=== PATIENT | male | born 1950 | race Caucasian/White ===

== ENCOUNTER 2017-11-24 23:29 | Observation (INO) | payer MEDICARE ==
[2017-11-24] MEDS ORDERED: Aspirin 81 MG Tab.Chew PO ONE (23:38)
--- NOTE | 2017-11-24 23:39 | EDM.PDOC ---
ED HPI GENERAL MEDICAL PROBLEM - General Chief Complaint: Chest Pain Stated Complaint: PT HAS HEART PROBLEMS Time Seen by Provider: 11/24/17 23:38 Source of Information: Reports: Patient - History of Present Illness INITIAL COMMENTS - FREE TEXT/NARRATIVE: HISTORY AND PHYSICAL: History of present illness: [Patient presents with chest discomfort throughout the day not associated with exertion or shortness of breath he rates one out of 10, pain resolved shortly after arrival without any real therapeutic treatment patient did receive aspirin enteric 2 baby aspirin at home was provided another 2 on arrival here giving him a total of 4 baby aspirin/324 mg. Patient has diabetes hypertension dyslipidemia recent incomplete stress testing scheduled for a nuclear study with Dr. Garcia, No fever nausea vomiting chills sweats no current chest pain shortness breath headache dizziness or palpitation no bowel bowel or urine symptoms no diaphoresis ] Review of systems: As per history of present illness and below otherwise all systems reviewed and negative. Past medical history: As per history of present illness and as reviewed below otherwise noncontributory. Surgical history: As per history of present illness and as reviewed below otherwise noncontributory. Social history: No reported history of drug or alcohol abuse. Family history: As per history of present illness and as reviewed below otherwise noncontributory. Physical exam: HEENT: Atraumatic, normocephalic, pupils reactive, negative for conjunctival pallor or scleral icterus, mucous membranes moist, throat clear, neck supple, nontender, trachea midline. Lungs: Clear to auscultation, breath sounds equal bilaterally, chest nontender. Heart: S1S2, regular, negative for clicks, rubs, or JVD. Abdomen: Soft, nondistended, nontender. Negative for masses or hepatosplenomegaly. Negative for costovertebral tenderness. Pelvis: Stable nontender. Genitourinary: Deferred. Rectal: Deferred. Extremities: Atraumatic, negative for cords or calf pain. Neurovascular unremarkable. Neuro: Awake, alert, oriented. Cranial nerves II through XII unremarkable. Cerebellum unremarkable. Motor and sensory unremarkable throughout. Exam nonfocal. Diagnostics: [CBC CMP UA troponin lipase EKG ] chest 1 view Therapeutics: [ normal saline 1 25 mL per hour aspirin 324 mg chewable ] Impression: [ atypical chest pain Slightly elevated troponin ] Definitive disposition and diagnosis as appropriate pending reevaluation and review of above. Mid-chest Pain Score (Numeric/FACES): 1 - Related Data Allergies Allergy/AdvReac Type Severity Reaction Status Date / Time Penicillins Allergy Diarrhea Verified 11/24/17 23:43 bee sting Allergy Shortness Uncoded 11/24/17 23:43 of Breath Home Meds: Home Meds Aspirin [Halfprin] 81 mg PO DAILY 09/20/15 [History] Furosemide 40 mg PO QAM 09/20/15 [History] Insulin Aspart [NovoLOG] 25 unit SQ TIDAC 09/20/15 [History] Insulin Glarg,Human.Rec.Analog [Lantus] 40 unit SQ BEDTIME 09/20/15 [History] Lisinopril 20 mg PO DAILY 09/20/15 [History] Nebivolol HCl [Bystolic] 10 mg PO DAILY 09/20/15 [History] Nitroglycerin [Nitrostat] 1 tab PO ASDIRECTED PRN 09/20/15 [History] Triamterene/Hydrochlorothiazid [Triamterene-HCTZ 75-50 MG] 1 tab PO DAILY [History] amLODIPine Besylate [Amlodipine Besylate] 5 mg PO DAILY 09/20/15 [History] atorvaSTATin Calcium [Atorvastatin Calcium] 40 mg PO BEDTIME 09/20/15 [History] metFORMIN HCl [Metformin HCl] 1,000 mg PO PCDINNER 09/20/15 [History] Potassium Chloride [Klor-Con M20] 20 meq PO DAILY 05/08/16 [History] Past Medical History Cardiovascular History: Reports: CAD, High Cholesterol, Hypertension Gastrointestinal History: Reports: Other (See Below) Other Gastrointestinal History: Current umbilical hernia Musculoskeletal History: Reports: Fracture Other Musculoskeletal History: Right lower leg as young child, Fingers in Oil Patch (severaL). Bilateral Eye Orbital repairs Neurological History: Reports: CVA Other Neuro History: hx stroke '98 "only residual Right Side Tires easily" Endocrine/Metabolic History: Reports: Diabetes, Type I, Obesity/BMI 30+ Hematologic History: Reports: Other (See Below) Other Hematologic History: I bleed easily Dermatologic History: Reports: Other (See Below) Other Dermatologic History: Chronic area to Right Lower Leg - Infectious Disease History Infectious Disease History: Reports: Influenza, Measles, Mumps - Past Surgical History HEENT Surgical History: Reports: Other (See Below) GI Surgical History: Reports: Hernia Repair/Other Social & Family History - Family History Family Medical History: Noncontributory - Tobacco Use Smoking Status *Q: Former Smoker Used Tobacco, but Quit: No Second Hand Smoke Exposure: No - Caffeine Use Caffeine Use: Reports: None - Alcohol Use Days Per Week of Alcohol Use: 4 Number of Drinks Per Day: 2 Total Drinks Per Week: 8 - Recreational Drug Use Recreational Drug Use: No Drug Use in Last 12 Months: No ED ROS GENERAL - Review of Systems Review Of Systems: ROS reveals no pertinent complaints other than HPI. ED EXAM, GENERAL - Physical Exam Exam: See Below Course - Vital Signs Last Recorded V/S: Last Vital Signs Temp 97.6 F 11/24/17 23:29 Pulse 59 L 11/25/17 00:49 Resp 16 11/25/17 00:49 BP 130/68 11/25/17 00:49 Pulse Ox 94 L 11/25/17 00:49 - Orders/Labs/Meds Orders: Active Orders 24 hr Category Date Time Status EKG Documentation Completion [RC] AM Care 11/24/17 23:38 Active Chest 1V Frontal [CR] Stat Exams 11/24/17 23:38 Taken B-TYPE NATRIURETIC PEPTIDE,BNP [CHEM] Stat Lab 11/25/17 00:50 Ordered Nitroglycerin [Nitrostat] Med 11/25/17 00:46 Active 0.4 mg SL Q5M PRN Sodium Chloride 0.9% [Normal Saline] 1,000 ml Med 11/24/17 23:45 Active IV STAT Medication Orders Sodium Chloride (Normal Saline) 1,000 mls @ 125 mls/hr IV STAT KRISHNA Last Admin: 11/24/17 23:52 Dose: 125 mls/hr Nitroglycerin (Nitrostat) 0.4 mg SL Q5M PRN PRN Reason: Chest Pain Labs: Laboratory Tests 11/24/17 11/24/17 Range/Units 23:35 23:35 WBC 10.53 (4.0-11.0) K/uL RBC 4.61 (4.50-5.90) M/uL Hgb 14.2 (13.0-17.0) g/dL Hct 43.6 (38.0-50.0) % MCV 94.6 (80.0-98.0) fL MCH 30.8 (27.0-32.0) pg MCHC 32.6 (31.0-37.0) g/dL RDW Std Deviation 51.0 (28.0-62.0) fl RDW Coeff of Danyelle 15 (11.0-15.0) % Plt Count 191 (150-400) K/uL MPV 11.40 (7.40-12.00) fL Neut % (Auto) 54.5 (48.0-80.0) % Lymph % (Auto) 23.6 (16.0-40.0) % [place] % (Auto) 10.1 (0.0-15.0) % Eos % (Auto) 11.2 H (0.0-7.0) % Baso % (Auto) 0.6 (0.0-1.5) % Neut # (Auto) 5.8 H (1.4-5.7) K/uL Lymph # (Auto) 2.5 H (0.6-2.4) K/uL [place] # (Auto) 1.1 H (0.0-0.8) K/uL Eos # (Auto) 1.2 H (0.0-0.7) K/uL Baso # (Auto) 0.1 (0.0-0.1) K/uL Nucleated RBC % 0.0 /100WBC Nucleated RBCs # 0 K/uL Sodium 137 (136-148) mmol/L Potassium 4.0 (3.5-5.1) mmol/L Chloride 100 (98-107) mmol/L Carbon Dioxide 27.9 (21.0-32.0) mmol/L BUN 36 H (7.0-18.0) mg/dL Creatinine 0.9 (0.8-1.3) mg/dL Est Cr Clr Drug Dosing TNP Estimated GFR (MDRD) > 60.0 ml/min Glucose 155 H (74-106) mg/dL Calcium 9.0 (8.5-10.1) mg/dL Total Bilirubin 0.4 (0.2-1.0) mg/dL AST 13 L (15-37) IU/L ALT 26 (14-63) IU/L Alkaline Phosphatase 93 (46-116) U/L Creatine Kinase 89 (26-308) U/L CK-MB (CK-2) 2.0 (0-3.6) ng/mL Troponin I 0.064 H* (0.000-0.056) ng/mL Total Protein 7.6 (6.4-8.2) g/dL Albumin 3.8 (3.4-5.0) g/dL Globulin 3.8 H (2.0-3.5) g/dL Albumin/Globulin Ratio 1.0 L (1.3-2.8) Lipase 107 (73-393) U/L Meds: Medications Generic Name Dose Route Start Last Admin Trade Name Freq PRN Reason Stop Dose Admin Sodium Chloride 1,000 mls @ 125 mls/hr 11/24/17 23:45 11/24/17 23:52 Normal Saline IV 125 mls/hr STAT KRISHNA Administration Nitroglycerin 0.4 mg 11/25/17 00:46 Nitrostat SL Q5M PRN Chest Pain Discontinued Medications Generic Name Dose Route Start Last Admin Trade Name Freq PRN Reason Stop Dose Admin Aspirin 324 mg 11/24/17 23:38 11/24/17 23:52 Aspirin PO 11/24/17 23:39 162 mg ONETIME ONE Administration Enoxaparin Sodium 150 mg 11/25/17 00:50 Lovenox SUBCUT 11/25/17 00:51 ONETIME ONE Departure - Departure Time of Disposition: 00:58 Disposition: Refer to Observation Condition: Fair Clinical Impression: Atypical chest pain - Discharge Information Forms: ED Department Discharge - My Orders Last 24 Hours: My Active Orders 11/24/17 23:38 EKG Documentation Completion [RC] AM Chest 1V Frontal [CR] Stat 11/24/17 23:45 Sodium Chloride 0.9% [Normal Saline] 1,000 ml IV STAT 11/25/17 00:46 Nitroglycerin [Nitrostat] 0.4 mg SL Q5M PRN 11/25/17 00:50 B-TYPE NATRIURETIC PEPTIDE,BNP [CHEM] Stat - Assessment/Plan Last 24 Hours: My Active Orders 11/24/17 23:38 EKG Documentation Completion [RC] AM Chest 1V Frontal [CR] Stat 11/24/17 23:45 Sodium Chloride 0.9% [Normal Saline] 1,000 ml IV STAT 11/25/17 00:46 Nitroglycerin [Nitrostat] 0.4 mg SL Q5M PRN 11/25/17 00:50 B-TYPE NATRIURETIC PEPTIDE,BNP [CHEM] Stat
[2017-11-24] MEDS ORDERED: Sodium Chloride 0.9% 1,000 ML IV SCH (23:45)
[2017-11-25 00:27] LABS: CHLORIDE,CL 100 mmol/L (98-107); SODIUM,NA 137 mmol/L (136-148)
[2017-11-25] MEDS ORDERED: Nitroglycerin 0.4 MG Tab.SL SL PRN ×2 (00:46→02:31)
[2017-11-25] MEDS ORDERED: Enoxaparin 150 MG/1 ML Syringe SUBCUT ONE (00:50)
[2017-11-25] MEDS ORDERED: Acetaminophen 325 MG Tab PO PRN (02:29)
[2017-11-25] MEDS ORDERED: Insulin Glargine,Human Rec. Analog 100 Units/ML 3 ML Pen SUBCUT ONE (02:48)
[2017-11-25] MEDS: Insulin Aspart 100 Units/ML 3 ML Pen SUBCUT SCH ×3 (06:43→17:01)
[2017-11-25] MEDS ORDERED: Hydrochlorothiazide/Triamterene 50-75 MG Tab PO SCH (09:00)
[2017-11-25] MEDS ORDERED: amLODIPine 5 MG Tab PO SCH (09:00)
[2017-11-25] MEDS ORDERED: Aspirin 81 MG Tab.EC PO SCH (09:00)
[2017-11-25] MEDS ORDERED: Potassium Chloride 20 MEQ Tab.ER PO SCH (09:00)
[2017-11-25] MEDS ORDERED: NEBIVOLOL 10 MG PO SCH (09:00)
[2017-11-25] MEDS ORDERED: Lisinopril 10 MG Tab PO SCH (09:00)
[2017-11-25] MEDS ORDERED: Furosemide 40 MG Tab PO SCH (09:00)
--- NOTE | 2017-11-25 12:32 | PCM.HP ---
H&P History of Present Illness - General Date of Service: 11/25/17 Admit Problem/Dx: Admission Diagnosis/Problem Admission Diagnosis/Problem Atypical chest pain Source of Information: Patient History Limitations: Reports: No Limitations - History of Present Illness Initial Comments - Free Text/Narative: Admission diagnosis: #1. Chest pain #2. Elevated troponin Discharge diagnosis: #1. Chest pain, resolved #2. Elevated troponin, improved 67-year-old male with a history of diabetes, hypertension, dyslipidemia and stroke, presented to the ER with chief complaint of chest pain that had persisted over the previous day. Upon presenting to the ER, the chest pain had almost resolved. The patient did take a baby aspirin prior to presenting to the ER. He had no chest pain with exertion and he did not have any shortness of breath, radiation of the pain or diaphoresis. The pain was dull in nature and located in the mid sternum. Patient did undergo a stress test at the beginning of November 2017 which showed decreased uptake along the inferior wall of the heart suggesting possible underlying ischemia. His ejection fraction was 47%. Patient does have a follow-up appointment with Dr. Garcia, chiropractor sole practitioner, here in [place]. While in the ER the patient was given IV fluids and another aspirin. Since being admitted, the patient has not had any chest pain, shortness of breath, nausea, vomiting, peripheral edema, orthopnea fever or any other symptoms. ER workup: CBC was unremarkable. BUN mildly elevated at 36. The highest it has been was 49 in 2016. Patient denies any history of kidney disease. Initial troponin was 0.064. Second troponin is within normal limits. BMP is 472. Previous BNP in 2016 was 279. Chest x-ray showed cardiomegaly. All other testing was unremarkable. During admission, repeat troponin 2 was negative. Patient was seen by our chiropractor sole practitioner, Dr. Linda. He looked at the patient's EKG and spoke with the patient' s chiropractor sole practitioner, Dr. Garcia, in [place], [place]. Dr. Garcia did not believe that the patient needed to be transferred for an emergent cardiac cath but that he can be discharged home with a follow-up appointment scheduled on December [address] Garcia. Patient did not need any treatment for chest pain during admission. He was tolerating oral intake and voiding appropriately. He was ambulating without assistance during admission. At the time of discharge, the patient was not experiencing any chest pain and seemed to be doing well. Mid-chest Pain Score (Numeric/FACES): 1 - Related Data Allergies/Adverse Reactions: Allergies Allergy/AdvReac Type Severity Reaction Status Date / Time Penicillins Allergy Diarrhea Verified 11/24/17 23:43 bee sting Allergy Shortness Uncoded 11/24/17 23:43 of Breath Home Medications: Home Meds Aspirin [Halfprin] 81 mg PO DAILY 09/20/15 [History] Furosemide 40 mg PO QAM 09/20/15 [History] Insulin Aspart [NovoLOG] 25 unit SQ TIDAC 09/20/15 [History] Insulin Glarg,Human.Rec.Analog [Lantus] 40 unit SQ BEDTIME 09/20/15 [History] Lisinopril 20 mg PO DAILY 09/20/15 [History] Nebivolol HCl [Bystolic] 10 mg PO DAILY 09/20/15 [History] Nitroglycerin [Nitrostat] 1 tab PO ASDIRECTED PRN 09/20/15 [History] Triamterene/Hydrochlorothiazid [Triamterene-HCTZ 75-50 MG] 1 tab PO DAILY [History] metFORMIN HCl [Metformin HCl] 1,000 mg PO PCDINNER 09/20/15 [History] Potassium Chloride [Klor-Con M20] 20 meq PO DAILY 05/08/16 [History] Clopidogrel Bisulfate [Plavix] 75 mg PO DAILY #30 tablet 11/25/17 [Rx] Isosorbide Mononitrate [Imdur] 20 mg PO DAILY #30 tab.er 11/25/17 [Rx] atorvaSTATin Calcium [Atorvastatin Calcium] 80 mg PO BEDTIME #30 tablet [Rx] Past Medical History HEENT History: Reports: Cataract Cardiovascular History: Reports: CAD, High Cholesterol, Hypertension Gastrointestinal History: Reports: Other (See Below) Other Gastrointestinal History: Current umbilical hernia Musculoskeletal History: Reports: Fracture Other Musculoskeletal History: Right lower leg as young child, 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) Neurological History: Reports: CVA Other Neuro History: hx stroke ,1997 "Right Side Tires easily" Endocrine/Metabolic History: Reports: Diabetes, Type I, Obesity/BMI 30+ Hematologic History: Reports: Other (See Below) Other Hematologic History: I bleed easily Dermatologic History: Reports: Other (See Below) Other Dermatologic History: Chronic area to Right Lower Leg - Infectious Disease History Infectious Disease History: Reports: Influenza, Measles, Mumps - Past Surgical History HEENT Surgical History: Reports: Other (See Below) Other HEENT Surgeries/Procedures: Bilateral orbital eye surgery Cardiovascular Surgical History: Reports: None GI Surgical History: Reports: Hernia Repair/Other Endocrine Surgical History: Reports: None Neurological Surgical History: Reports: None Social & Family History - Family History Family Medical History: Noncontributory - Tobacco Use Smoking Status *Q: Never Smoker Used Tobacco, but Quit: No Second Hand Smoke Exposure: No - Caffeine Use Caffeine Use: Reports: Coffee Other Caffeine Use: occasionally - Alcohol Use Days Per Week of Alcohol Use: 4 Number of Drinks Per Day: 2 Total Drinks Per Week: 8 - Recreational Drug Use Recreational Drug Use: No Drug Use in Last 12 Months: No H&P Review of Systems - Review of Systems: Review Of Systems: See Below General: Reports: No Symptoms HEENT: Reports: No Symptoms Pulmonary: Reports: No Symptoms Cardiovascular: Reports: Chest Pain Gastrointestinal: Reports: No Symptoms Genitourinary: Reports: No Symptoms Musculoskeletal: Reports: No Symptoms Skin: Reports: No Symptoms Psychiatric: Reports: No Symptoms Neurological: Reports: No Symptoms Hematologic/Lymphatic: Reports: No Symptoms Immunologic: Reports: No Symptoms Exam - Exam Exam: See Below - Vital Signs Vital Signs: Last Vital Signs Temp 98.0 F 11/25/17 12:00 Pulse 60 11/25/17 12:00 Resp 20 11/25/17 12:00 BP 103/53 L 11/25/17 12:00 Pulse Ox 96 11/25/17 12:00 Weight: 228 lb 11.2 oz - Exam General: Alert, Oriented, Cooperative HEENT: Hearing Intact Neck: Supple, Trachea Midline, 2 Lungs: Clear to Auscultation, Normal Respiratory Effort Cardiovascular: Regular Rate, Regular Rhythm GI/Abdominal Exam: Normal Bowel Sounds, Soft, Non-Tender, No Organomegaly, No Distention, No Abnormal Bruit, No Mass, Pelvis Stable Extremities: Normal Inspection, Normal Range of Motion, Non-Tender, No Pedal Edema, Normal Capillary Refill Peripheral Pulses: 2+: Radial (L), Radial (R), Posterior Tibial (L), Posterior Tibial (R) Skin: Warm, Dry, Intact Neuro Extensive - Mental Status: Alert, Oriented x3, Normal Mood/Affect, Normal Cognition Neuro Extensive - Motor, Sensory, Reflexes: Normal Gait Psychiatric: Alert, Normal Affect, Normal Mood - Patient Data Lab Results Last 24 hrs: Laboratory Results - last 24 hr 11/24/17 11/24/17 11/24/17 Range/Units 23:35 23:35 23:35 WBC 10.53 (4.0-11.0) K/uL RBC 4.61 (4.50-5.90) M/uL Hgb 14.2 (13.0-17.0) g/dL Hct 43.6 (38.0-50.0) % MCV 94.6 (80.0-98.0) fL MCH 30.8 (27.0-32.0) pg MCHC 32.6 (31.0-37.0) g/dL RDW Std Deviation 51.0 (28.0-62.0) fl RDW Coeff of Danyelle 15 (11.0-15.0) % Plt Count 191 (150-400) K/uL MPV 11.40 (7.40-12.00) fL Neut % (Auto) 54.5 (48.0-80.0) % Lymph % (Auto) 23.6 (16.0-40.0) % Clarke % (Auto) 10.1 (0.0-15.0) % Eos % (Auto) 11.2 H (0.0-7.0) % Baso % (Auto) 0.6 (0.0-1.5) % Neut # (Auto) 5.8 H (1.4-5.7) K/uL Lymph # (Auto) 2.5 H (0.6-2.4) K/uL Clarke # (Auto) 1.1 H (0.0-0.8) K/uL Eos # (Auto) 1.2 H (0.0-0.7) K/uL Baso # (Auto) 0.1 (0.0-0.1) K/uL Nucleated RBC % 0.0 /100WBC Nucleated RBCs # 0 K/uL Sodium 137 (136-148) mmol/L Potassium 4.0 (3.5-5.1) mmol/L Chloride 100 (98-107) mmol/L Carbon Dioxide 27.9 (21.0-32.0) mmol/L BUN 36 H (7.0-18.0) mg/dL Creatinine 0.9 (0.8-1.3) mg/dL Est Cr Clr Drug Dosing TNP Estimated GFR (MDRD) > 60.0 ml/min Glucose 155 H (74-106) mg/dL Calcium 9.0 (8.5-10.1) mg/dL Total Bilirubin 0.4 (0.2-1.0) mg/dL AST 13 L (15-37) IU/L ALT 26 (14-63) IU/L Alkaline Phosphatase 93 (46-116) U/L Creatine Kinase 89 (26-308) U/L CK-MB (CK-2) 2.0 (0-3.6) ng/mL Troponin I 0.064 H* (0.000-0.056) ng/mL B-Natriuretic Peptide 472 H (<100) PG/ML Total Protein 7.6 (6.4-8.2) g/dL Albumin 3.8 (3.4-5.0) g/dL Globulin 3.8 H (2.0-3.5) g/dL Albumin/Globulin Ratio 1.0 L (1.3-2.8) Lipase 107 (73-393) U/L 11/25/17 Range/Units 05:41 WBC (4.0-11.0) K/uL RBC (4.50-5.90) M/uL Hgb (13.0-17.0) g/dL Hct (38.0-50.0) % MCV (80.0-98.0) fL MCH (27.0-32.0) pg MCHC (31.0-37.0) g/dL RDW Std Deviation (28.0-62.0) fl RDW Coeff of Danyelle (11.0-15.0) % Plt Count (150-400) K/uL MPV (7.40-12.00) fL Neut % (Auto) (48.0-80.0) % Lymph % (Auto) (16.0-40.0) % Clarke % (Auto) (0.0-15.0) % Eos % (Auto) (0.0-7.0) % Baso % (Auto) (0.0-1.5) % Neut # (Auto) (1.4-5.7) K/uL Lymph # (Auto) (0.6-2.4) K/uL Clarke # (Auto) (0.0-0.8) K/uL Eos # (Auto) (0.0-0.7) K/uL Baso # (Auto) (0.0-0.1) K/uL Nucleated RBC % /100WBC Nucleated RBCs # K/uL Sodium (136-148) mmol/L Potassium (3.5-5.1) mmol/L Chloride (98-107) mmol/L Carbon Dioxide (21.0-32.0) mmol/L BUN (7.0-18.0) mg/dL Creatinine (0.8-1.3) mg/dL Est Cr Clr Drug Dosing Estimated GFR (MDRD) ml/min Glucose (74-106) mg/dL Calcium (8.5-10.1) mg/dL Total Bilirubin (0.2-1.0) mg/dL AST (15-37) IU/L ALT (14-63) IU/L Alkaline Phosphatase (46-116) U/L Creatine Kinase (26-308) U/L CK-MB (CK-2) (0-3.6) ng/mL Troponin I < 0.050 (0.000-0.056) ng/mL B-Natriuretic Peptide (<100) PG/ML Total Protein (6.4-8.2) g/dL Albumin (3.4-5.0) g/dL Globulin (2.0-3.5) g/dL Albumin/Globulin Ratio (1.3-2.8) Lipase (73-393) U/L Result Diagrams: 11/24/17 23:35 11/24/17 23:35 - Problem List (1) Atypical chest pain SNOMED Code(s): 018507919 ICD Code: R07.89 - OTHER CHEST PAIN Status: Acute Current Visit: Yes Problem List Initiated/Reviewed/Updated: Yes Orders Last 24hrs: Active Orders 24 hr Category Date Time Status Admission Status [Patient Status] [ADT] Stat ADT 11/25/17 00:59 Active Blood Glucose Check, Bedside [RC] TIDAC Care 11/25/17 06:30 Active Communication Order [RC] ROUTINE Care 11/25/17 02:26 Active Notify Provider Consults [RC] ASDIRECTED Care 11/25/17 12:20 Active Telemetry Monitoring [Cardiac Monitoring] [RC] . Care 11/25/17 01:11 Active DIRECTED Consult to Physician [CONS] Routine Cons 11/25/17 12:20 Active ADA Diabetic [[place] [employer] Diet] [DIET Diet 11/25/17 Breakfast Active ] Chest 1V Frontal [CR] Stat Exams 11/24/17 23:38 Taken TROPONIN I [CHEM] Q6H Lab 11/25/17 11:38 Received Acetaminophen [Tylenol] Med 11/25/17 02:29 Active 650 mg PO Q4H PRN Aspirin [Halfprin] Med 11/25/17 09:00 Active 81 mg PO DAILY Furosemide [Lasix] Med 11/25/17 09:00 Active 40 mg PO QAM HCTZ/Triamterene [Maxzide 50-75 MG] Med 11/25/17 09:00 Active 1 each PO DAILY Insulin Aspart [NovoLOG] Med 11/25/17 07:30 Active See Protocol SUBCUT TIDAC Insulin Glarg,Human.Rec.Analog [LantUS Solostar] Med 11/25/17 21:00 Active 0 units SUBCUT BEDTIME Lisinopril [Prinivil] Med 11/25/17 09:00 Active 20 mg PO DAILY Nebivolol Med 11/25/17 09:00 Active 10 mg PO DAILY Nitroglycerin [Nitrostat] Med 11/25/17 02:31 Active 0.4 mg SL ASDIRECTED PRN Nitroglycerin [Nitrostat] Med 11/25/17 00:46 Active 0.4 mg SL Q5M PRN Potassium Chloride [Klor-Con M20] Med 11/25/17 09:00 Active 20 meq PO DAILY Sodium Chloride 0.9% [Normal Saline] 1,000 ml Med 11/24/17 23:45 Active IV STAT amLODIPine [Norvasc] Med 11/25/17 09:00 Active 5 mg PO DAILY atorvaSTATin [Lipitor] Med 11/25/17 21:00 Active 40 mg PO BEDTIME metFORMIN [Glucophage] Med 11/25/17 18:00 Active 1,000 mg PO PCDINNER Medication Orders Acetaminophen (Tylenol) 650 mg PO Q4H PRN PRN Reason: Pain Amlodipine Besylate (Norvasc) 5 mg PO DAILY [facility] Last Admin: 11/25/17 09:27 Dose: Not Given Aspirin (Halfprin) 81 mg PO DAILY [facility] Last Admin: 11/25/17 08:02 Dose: 81 mg Atorvastatin Calcium (Lipitor) 40 mg PO BEDTIME [facility] Furosemide (Lasix) 40 mg PO QAM [facility] Last Admin: 11/25/17 08:02 Dose: 40 mg Sodium Chloride (Normal Saline) 1,000 mls @ 125 mls/hr IV STAT [facility] Last Admin: 11/24/17 23:52 Dose: 125 mls/hr Insulin Aspart (Novolog) 0 unit SUBCUT TIDAC [facility]; Protocol Last Admin: 11/25/17 12:08 Dose: Not Given Admin: 11/25/17 06:43 Dose: Not Given Insulin Glargine (Lantus Solostar) 0 units SUBCUT BEDTIME [facility] Lisinopril (Prinivil) 20 mg PO DAILY [facility] Last Admin: 11/25/17 09:27 Dose: Not Given Metformin HCl (Glucophage) 1,000 mg PO PCDINNER [facility] Nitroglycerin (Nitrostat) 0.4 mg SL Q5M PRN PRN Reason: Chest Pain Nitroglycerin (Nitrostat) 0.4 mg SL ASDIRECTED PRN PRN Reason: Chest Pain Non-Formulary Medication (Nebivolol) 10 mg PO DAILY [facility] Potassium Chloride (Klor-Con M20) 20 meq PO DAILY [facility] Last Admin: 11/25/17 08:02 Dose: 20 meq Triamterene/HCTZ (Maxzide 50-75 Mg) 1 each PO DAILY [facility] Last Admin: 11/25/17 08:02 Dose: 1 each Assessment/Plan Comment:: 67-year-old male being admitted with atypical chest pain. #1 atypical chest pain: Initial troponin was elevated at 0.064. Follow-up troponin 2 was negative. Patient has not had any chest pain since admission and has not needed any treatment for chest pain. Patient is scheduled see Dr. Garcia on December 03. -Dr. Linda has been consulted and will see the patient prior to discharge. -Patient did undergo stress testing at the being of November 2017. This showed decreased uptake along the inferior wall of the heart suggesting possible underlying ischemia. Ejection fraction was 47%. All home medications have been resumed. Disposition: Today after being seen by Dr. Linda. Admission diagnosis: #1. Chest pain #2. Elevated troponin Discharge diagnosis: #1. Chest pain, resolved #2. Elevated troponin, improved 67-year-old male with a history of diabetes, hypertension, dyslipidemia and stroke, presented to the ER with chief complaint of chest pain that had persisted over the previous day. Upon presenting to the ER, the chest pain had almost resolved. The patient did take a baby aspirin prior to presenting to the ER. He had no chest pain with exertion and he did not have any shortness of breath, radiation of the pain or diaphoresis. The pain was dull in nature and located in the mid sternum. Patient did undergo a stress test at the beginning of November 2017 which showed decreased uptake along the inferior wall of the heart suggesting possible underlying ischemia. His ejection fraction was 47%. Patient does have a follow-up appointment with Dr. Garcia, chiropractor sole practitioner, here in [place]. While in the ER the patient was given IV fluids and another aspirin. Since being admitted, the patient has not had any chest pain, shortness of breath, nausea, vomiting, peripheral edema, orthopnea fever or any other symptoms. ER workup: CBC was unremarkable. BUN mildly elevated at 36. The highest it has been was 49 in 2016. Patient denies any history of kidney disease. Initial troponin was 0.064. Second troponin is within normal limits. BMP is 472. Previous BNP in 2016 was 279. Chest x-ray showed cardiomegaly. All other testing was unremarkable. During admission, repeat troponin 2 was negative. Patient was seen by our chiropractor sole practitioner, Dr. Linda. He looked at the patient's EKG and spoke with the patient' s chiropractor sole practitioner, Dr. Garcia, in [place], [place]. Dr. Garcia did not believe that the patient needed to be transferred for an emergent cardiac cath but that he can be discharged home with a follow-up appointment scheduled on December [address] Garcia. Patient did not need any treatment for chest pain during admission. Dr. Linda did recommend that the patient be given a 600 mg loading dose of Plavix prior to discharge and then started on 75 mg daily of Plavix starting tomorrow. He was tolerating oral intake and voiding appropriately. He was ambulating without assistance during admission. At the time of discharge, the patient was not experiencing any chest pain and seemed to be doing well. Discharge plan: #1. Patient's Norvasc was discontinued secondary to hypotension. All other antihypertensive medications were continued. #2. Prescription given for Imdur 20 mg daily. This was recommended by Dr. Linda, chiropractor sole practitioner. #3. Prescription given for Plavix 75 mg daily. This was recommended by Dr. Linda, chiropractor sole practitioner. #4. Lipitor increased to 80 mg daily. #5. Patient will follow-up with Dr. Garcia on December 03, 2017. The of the patient is trying to get an earlier appointment. Patient was admitted and discharged within the same 24-hour period. This document will be used as the patient's H&P as well as his discharge summary.
--- NOTE | 2017-11-25 15:27 | CR ---
EXAM DATE: 11/25/17 PATIENT'S AGE: 67 Patient: LAURIE PHAM Facility: [place], [place] Site . Site : 1950 Study: XRay Chest [id number] 12:09:02 AM Ordering Physician: Doctor Hammond Final Report: INDICATION: Chest pain. TECHNIQUE: Chest radiograph 1 view COMPARISON: None FINDINGS: Cardiac silhouette is enlarged. No focal airspace consolidation, blunting of costophrenic sulci, or pneumothorax. Moderate degree bilateral shoulder degenerative changes. No displaced rib fracture. IMPRESSION: 1. Cardiomegaly. Dictated by Oj Cooley MD @ 11/25/2017 12:12:56 AM Dictated by: Oj Cooley MD @ 11/25/2017 00:13:01 (Electronic Signature) Report Signed by Proxy. [facility]ITALAlexei
[2017-11-25 16:11] VITALS: BP 105/62
[2017-11-25] MEDS ORDERED: Clopidogrel 75 MG Tab PO ONE (16:17)
[2017-11-25] MEDS ORDERED: metFORMIN 500 MG Tab PO SCH (18:00)
[2017-11-25] MEDS ORDERED: Insulin Glargine,Human Rec. Analog 100 Units/ML 3 ML Pen SUBCUT SCH (21:00)
[2017-11-25] MEDS ORDERED: atorvaSTATin 40 MG Tab PO SCH (21:00)
--- NOTE | 2017-11-26 00:47 | CONS ---
DATE OF CONSULTATION: 11/25/2017 DATE OF : 1950 PRIMARY CARE PHYSICIAN: None PCP REASON FOR CONSULTATION: Elevation of troponin. HISTORY OF PRESENT ILLNESS: This is a 67-year-old male with history of diabetes, hypertension, hyperlipidemia, and history of stroke in the past, who has presented to the hospital yesterday for feeling tired, weakness, and dull aching pain. I was just asked to see him like 1 hour ago today. He stated that he has had dull aching pain on the left-sided chest wall; no radiation; it is mild, like 2 from 10 pain scale; it is not related to any activities or breathing, and it comes and go all day long; never woke him up at night; lasting could be 1 to 2 hours. He denied related symptoms, such as shortness of breath, sweating, or nausea or vomiting. No leg swelling also. He had the stress Lexiscan done on November 21 due to the chest pain, at that time it seemed to be positive. However, he has been scheduled to see Dr. Garcia on December 03. However, because of the symptom of dull aching pain as well as tired, he was admitted in the hospital yesterday. Yesterday, he arrived into the hospital, the chest pain has gone away, and he has been feeling tired. When I talked to him today, he denied any chest pain, and he is comfortably lying down in bed. The current EKG on November 24, [address] depression in II and aVF, also V4 to V6, and also lead I and aVL. When compared to the old one, he has a preexisting ST abnormality in the past too in V3 to V6; however, lead III and aVL seemed to be normal ST-segment. PAST MEDICAL HISTORY: Including history of stroke, hypertension, hyperlipidemia, and diabetes. He used to be on the Plavix before, but he stopped it because he was feeling fine. SOCIAL HISTORY: He denies smoking. No drug use. He drinks occasionally. FAMILY HISTORY: Noncontributory. REVIEW OF SYSTEMS: As indicated in the HPI, otherwise has been negative. PHYSICAL EXAMINATION: VITAL SIGNS: The current blood pressure is ranging between 90/42 to 100/53, heart rate of 60 to 70, O2 saturation is 96% on room air, respiration rate 16 to 20, and temperature 36.7. HEENT: No pallor. No jaundice. No JVD. HEART: Normal S1 and S2. No murmur. LUNGS: Clear. ABDOMEN: Soft and nontender. Bowel sounds are present. No hepatosplenomegaly. LEGS: Trace edema bilaterally. INVESTIGATIONS: CBC showed WBC 10, hematocrit 43, and platelets 191. Sodium 137, potassium 4, chloride 100, bicarb 27, BUN 36, and creatinine 0.9. The first troponin is 0.064, the second and third one were negative. BNP was elevated at 472. Lexiscan was done on November 21, showing partially severe reversible perfusion defect in basal to distal inferior wall as well as mild reversible perfusion defect in the basal to distal anterior wall with stress ejection fraction of 28% and the resting ejection fraction of 47%, TID was not elevated. CURRENT MEDICATIONS: Including 81 mg of aspirin, Lasix 40 mg once a day, Maxzide 50/75 mg once a day, nebivolol 10 mg once a day, amlodipine 5 mg once a day, lisinopril 20 mg once a day, metformin 1000 mg once a day, and Lipitor 40 mg once a day. ASSESSMENT AND PLAN: This is a 67-year-old male with history of diabetes, hypertension, and hyperlipidemia, who presented to the hospital with a dull aching chest pain, feeling tired, and there are some EKG changes especially in the inferior lead as well as elevation of troponin, I think most likely related to acute coronary syndrome. Currently, the troponin has come down, and the patient has been chest pain-free since he came into the hospital. I have spoken with Dr. Garcia, who recommended to follow up with him as an outpatient, and I will start him on the Plavix. He should be loaded with Plavix 600 inpatient and continue with the 75 mg once a day as an outpatient starting tomorrow, and also, he should be continued with aspirin 81 mg once a day. His blood pressure was borderline in the hospital. I will stop his amlodipine 5 mg and continue lisinopril 20 mg as well as the nebivolol 10 mg, and he should be continued with 40 mg of Lasix as well. Lipitor should be increased to 80 mg once a day, and I will fax the Lexiscan as well as the EKG to Dr. Garcia's office when he is seeing the patient. Currently, the patient is chest pain free and vital signs have been stable. CHAYA LAZARO /[id number]
== END 2017-11-25 17:00 | disposition home or self-care (01) ==
LOC: MW.ED 23:29 → MW.MS 11-25 00:59 → MW.ED 11-25 01:41
PROVIDERS: ADMIT Internal Medicine; ATTEND Internal Medicine
DX: R07.89 Other chest pain (principal); R79.89 Other specified abnormal findings of blood chemistry; E11.9 Type 2 diabetes mellitus without complications; I10 Essential (primary) hypertension; E78.5 Hyperlipidemia, unspecified; I25.10 Atherosclerotic heart disease of native coronary artery without angina pectoris; E66.9 Obesity, unspecified; Z87.891 Personal history of nicotine dependence; Z86.73 Personal history of transient ischemic attack (TIA), and cerebral infarction without residual deficits; Z88.0 Allergy status to penicillin; Z91.030 Bee allergy status; Z79.82 Long term (current) use of aspirin; Z79.4 Long term (current) use of insulin; Z79.02 Long term (current) use of antithrombotics/antiplatelets; Z68.30 Body mass index [BMI] 30.0-30.9, adult
CPT/HCPCS: 36415; 71045; 80053; 82550; 82553; 83690; 83880; 84484; 85025; 93005; 96360; 96361; 96372; 99285; A9270; J1650; J1815; J7040; 82962; 99283; G0378